=== PATIENT | female | born 1980 | race Caucasian/White ===

== ENCOUNTER 2018-01-08 02:44 | Observation (INO) | payer SELFPAY ==
[2018-01-08] VITALS (9 sets, daily range): BP systolic 106–138; BP diastolic 52–80; PULSE 57–77; RESP 16–20; TEMP 96.7–98.4; O2SAT 95–100
[~2018-01-08] VITALS: Ht 177.8 cm; Wt 116.6 kg
--- NOTE | 2018-01-08 03:00 | PD ---
HPI Chief Complaint: Numbness/Tingling Time Seen by Provider: 02:55 Travel History International Travel<30 days: No Contact w/Intl Traveler<30days: No Traveled to known affect area: No History of Present Illness HPI Per patient she stated that she has had for about the past 5 hours tingling and numbness to the right side of the face right entire upper extremity and right lower extremity. However now when she presented the patient states that she only has tingling to the right upper extremity on the right elbow down. Patient is able to speak clearly, able to give the entire history, has no gaps in memory, and is able to move all extremities including the affected extremity well and was able to ambulate back here on her own. Patient denies any headache /chest pain/back pain/abdominal pain/nausea/vomiting/diarrhea/visual changes/ Patient denies any allergies to medications Past medical history significant for PCO S, diabetes, patient had a left ovary and left fallopian tube removed because of a cyst that was thought to be malignant this was removed due to that reasoning. [facility] Social History Tobacco Use: No Allergies-Medications (Allergen,Severity, Reaction): Coded Allergies: Penicillins (Verified Allergy, Mild, Rash, 01/08/18) levofloxacin (Verified Allergy, Mild, Rash, 01/08/18) Reported Meds & Prescriptions Reported Meds & Active Scripts Active Reported Ventolin Hfa 18 GM Inh (Albuterol Sulfate) 90 Mcg/Act Aer 2 Puff INH Q4-6H PRN Simvastatin 5 Mg Tab 5 Mg PO DAILY Spironolactone 25 Mg Tab 12.5 Mg PO DAILY Tradjenta (Linagliptin) 5 Mg Tab 5 Mg PO DAILY Prozac (Fluoxetine HCl) 40 Mg Cap 40 Mg PO DAILY Metformin ER (Metformin HCl) 750 Mg Terese 750 Mg PO BID With evening meal Review of Systems General / Constitutional: No: Fever Eyes: No: Visual changes HENT: No: Headaches Cardiovascular: No: Chest Pain or Discomfort Respiratory: No: Shortness of Breath Gastrointestinal: No: Abdominal Pain Genitourinary: No: Dysuria Musculoskeletal: No: Pain Skin: No Rash Neurologic: Positive: Paresthesia Psychiatric: No: Depression Endocrine: No: Polydipsia Hematologic/Lymphatic: No: Easy Bruising Physical Exam Narrative GENERAL: SKIN: Warm and dry. HEAD: Atraumatic. Normocephalic. EYES: Pupils equal and round. No scleral icterus. No injection or drainage. ENT: No nasal bleeding or discharge. Mucous membranes pink and moist. NECK: Trachea midline. No JVD. CARDIOVASCULAR: Regular rate and rhythm. RESPIRATORY: No accessory muscle use. Clear to auscultation. Breath sounds equal bilaterally. GASTROINTESTINAL: Abdomen soft, non-tender, nondistended MUSCULOSKELETAL: Extremities without clubbing, cyanosis, or edema. No obvious deformities. NEUROLOGICAL: Awake and alert. No obvious cranial nerve deficits. Motor grossly within normal limits. Five out of 5 muscle strength in the arms and legs. Normal speech. PSYCHIATRIC: Appropriate mood and affect; insight and judgment normal. Data Data Last Documented VS Vital Signs Date Time Temp Pulse Resp B/P (MAP) Pulse Ox O2 Delivery O2 Flow Rate FiO2 01/08/18 03:59 60 16 117/78 (91) 97 Room Air 01/08/18 02:59 98.4 Orders Orders Electrocardiogram (01/08/18 03:00) Prothrombin Time / Inr (Pt) (01/08/18 03:00) Act Partial Throm Time (Ptt) (01/08/18 03:00) Complete Blood Count With Diff (01/08/18 03:00) Comprehensive Metabolic Panel (01/08/18 03:00) Drug Screen, Random Urine (01/08/18 03:00) Troponin I (01/08/18 03:00) Urinalysis - C+S If Indicated (01/08/18 03:00) Ct Brain W/O Iv Contrast(Rout) (01/08/18 03:00) Chest, Single Ap (01/08/18 03:00) Ecg Monitoring (01/08/18 03:00) Iv Access Insert/Monitor (01/08/18 03:00) Oximetry (01/08/18 03:00) Blood Glucose (01/08/18 03:00) Ed Urine Pregnancytest Poc (01/08/18 03:07) Admit Order (Ed Use Only) (01/08/18 04:46) Labs Laboratory Tests Test 01/08/18 02:55 01/08/18 04:03 White Blood Count 7.2 TH/MM3 Red Blood Count 4.37 MIL/MM3 Hemoglobin 13.2 GM/DL Hematocrit 39.1 % Mean Corpuscular Volume 89.6 FL Mean Corpuscular Hemoglobin 30.2 PG Mean Corpuscular Hemoglobin Concent 33.7 % Red Cell Distribution Width 13.1 % Platelet Count 200 TH/MM3 Mean Platelet Volume 9.9 FL Neutrophils (%) (Auto) 61.0 % Lymphocytes (%) (Auto) 30.6 % Monocytes (%) (Auto) 5.8 % Eosinophils (%) (Auto) 1.9 % Basophils (%) (Auto) 0.7 % Neutrophils # (Auto) 4.4 TH/MM3 Lymphocytes # (Auto) 2.2 TH/MM3 Monocytes # (Auto) 0.4 TH/MM3 Eosinophils # (Auto) 0.1 TH/MM3 Basophils # (Auto) 0.1 TH/MM3 CBC Comment DIFF FINAL Differential Comment Prothrombin Time 10.7 SEC Prothromb Time International Ratio 1.1 RATIO Activated Partial Thromboplast Time 28.4 SEC Blood Urea Nitrogen 9 MG/DL Creatinine 0.74 MG/DL Random Glucose 185 MG/DL Total Protein 8.5 GM/DL Albumin 3.3 GM/DL Calcium Level 8.7 MG/DL Alkaline Phosphatase 111 U/L Aspartate Amino Transf (AST/SGOT) 72 U/L Alanine Aminotransferase (ALT/SGPT) 102 U/L Total Bilirubin 0.3 MG/DL Sodium Level 137 MEQ/L Potassium Level 3.6 MEQ/L Chloride Level 102 MEQ/L Carbon Dioxide Level 29.7 MEQ/L Anion Gap 5 MEQ/L Estimat Glomerular Filtration Rate 89 ML/MIN Troponin I LESS THAN 0.02 NG/ML Urine Collection Type CLEAN CATCH Urine Color YELLOW Urine Turbidity CLEAR Urine pH 5.5 Urine Specific [place] 1.025 Urine Protein NEG mg/dL Urine Glucose (UA) 250 mg/dL Urine Ketones NEG mg/dL Urine Occult Blood NEG Urine Nitrite NEG Urine Bilirubin NEG Urine Urobilinogen 2.0 MG/DL Urine Leukocyte Esterase NEG Urine WBC 0-2 /hpf Urine Squamous Epithelial Cells 0-5 /hpf Urine Mucus MOD /lpf Microscopic Urinalysis Comment CULT NOT INDICATED Urine Opiates Screen NEG Urine Barbiturates Screen NEG Urine Amphetamines Screen NEG Urine Benzodiazepines Screen NEG Urine Cocaine Screen NEG Urine Cannabinoids Screen NEG MDM Medical Decision Making Medical Screen Exam Complete: Yes Emergency Medical Condition: Yes Medical Record Reviewed: Yes Interpretation(s) EKG shows some slight motion artifact however sinus bradycardia 56 bpm GÉNESIS pattern but without any STEMI pattern. Differential Diagnosis TIA versus CVA versus intracranial hemorrhage versus hypoglycemia versus anemia versus electrolyte abnormality Narrative Course CBC shows no leukocytosis no anemia and normal platelet count and no left shift Coagulation profile is within normal limits Urinalysis does not show any evidence of UTI Toxicology is negative for any evidence of opiate barbiturates and amphetamines benzodiazepines cocaine or marijuana Chemistry profile is within normal limits for electrolytes, and kidney functions. The random glucose is 185, troponin is negative, however mild elevations of AST at 72 ALT at 102 but with normal total bilirubin and normal alk phos Chest x-ray was read by the radiologist as normal examination CT head was read by the radiologist as normal examination Patient was recommended to stay to have further evaluation for a possible TIA versus pituitary adenoma versus intracerebral aneurysm Diagnosis Primary Impression: TIA Admitting Information Admitting Physician Requests: Observation Pavel Braswell MD Jan 08, 2018 03:00
[2018-01-08 03:18] LABS: AUTOMATED NEUTROPHIL # 4.4 TH/MM3 (1.8-7.7); BASOPHIL # 0.1 TH/MM3 (0-0.2); BASOPHIL % 0.7 % (0.0-2.0); EOSINOPHIL # 0.1 TH/MM3 (0-0.4); EOSINOPHIL % 1.9 % (0.0-4.0); HEMATOCRIT 39.1 % (35.0-46.0); HEMOGLOBIN 13.2 GM/DL (11.6-15.3); LYMPH % 30.6 % (9.0-44.0); LYMPHOCYTE # 2.2 TH/MM3 (1.0-4.8); MEAN CELL VOLUME 89.6 FL (80.0-100.0); MEAN CORPUSCULAR HEMOGLOBIN 30.2 PG (27.0-34.0); MEAN CORPUSCULAR HGB CONC 33.7 % (32.0-36.0); MEAN PLATELET VOLUME 9.9 FL (7.0-11.0); MONO % 5.8 % (0.0-8.0); MONOCYTE # 0.4 TH/MM3 (0-0.9); PLATELET COUNT 200 TH/MM3 (150-450); RED BLOOD COUNT 4.37 MIL/MM3 (4.00-5.30); RED CELL DISTRIBUTION WIDTH 13.1 % (11.6-17.2); WHITE BLOOD COUNT 7.2 TH/MM3 (4.0-11.0)
[2018-01-08 03:26] LABS: CHLORIDE 102 MEQ/L (98-107); SODIUM (NA) 137 MEQ/L (136-145)
[2018-01-08 03:29] LABS: CALCIUM 8.7 MG/DL (8.5-10.1)
[2018-01-08 03:30] LABS: ALBUMIN 3.3 GM/DL (3.4-5.0); BICARBONATE 29.7 MEQ/L (21.0-32.0); BLOOD UREA NITROGEN 9 MG/DL (7-18); GLUCOSE,RANDOM 185 MG/DL (74-106)
[2018-01-08 03:32] LABS: INTERNATIONAL NORMALIZED RATIO 1.1 RATIO; PROTHROMBIN TIME - PATIENT 10.7 SEC (9.8-11.6)
[2018-01-08 03:33] LABS: ALT (GPT) 102 U/L (10-53); AST (GOT) 72 U/L (15-37); CREATININE 0.74 MG/DL (0.50-1.00); GLOMERULAR FILTRATION RATE 89 ML/MIN (>89)
[2018-01-08 03:35] LABS: TOTAL BILIRUBIN ADULT 0.3 MG/DL (0.2-1.0); TOTAL PROTEIN 8.5 GM/DL (6.4-8.2)
[2018-01-08 03:36] LABS: ALKALINE PHOSPHATASE 111 U/L (45-117)
[2018-01-08 03:38] LABS: TROPONIN I LESS THAN 0.02 NG/ML (0.02-0.05)
[2018-01-08] MEDS ORDERED: SPIR25TA PO (03:42)
[2018-01-08] MEDS ORDERED: SIMV5TAB3 PO (03:42)
[2018-01-08] MEDS ORDERED: METF750T PO (03:42)
[2018-01-08] MEDS ORDERED: PROZ40CA PO (03:42)
[2018-01-08] MEDS ORDERED: TRAD5TAB PO (03:42)
[2018-01-08] MEDS ORDERED: VENTAER INH (03:42)
--- NOTE | 2018-01-08 03:57 | RADRPT ---
EXAM DATE/TIME: 01/08/2018 03:22 [facility] COMPARISON: No previous studies available for comparison. INDICATIONS : Weakness, right sided numbness starting today MEDICAL HISTORY : None. SURGICAL HISTORY : None. ENCOUNTER: Initial ACUITY: 1 day PAIN SCORE: 0/10 LOCATION: Bilateral chest FINDINGS: A single view of the chest demonstrates the lungs to be symmetrically aerated without evidence of mas s, infiltrate or effusion. The cardiomediastinal contours are unremarkable. Osseous structures are intact. CONCLUSION: Normal examination. Abner Bates Jr., MD on January 08, 2018 at 3:56 Board Certified Radiologist. This report was verified electronically.
[2018-01-08 04:21] LABS: BILIRUBIN, URINE NEG (NEG); BLOOD, URINE NEG (NEG); GLUCOSE,URINE 250 mg/dL (NEG); KETONE, URINE NEG (NEG); NITRITE,URINE NEG (NEG); PH, URINE 5.5 (5.0-8.5); URINE COLOR YELLOW (YELLW/STRAW); URINE LEUKOCYTE ESTERASE NEG (NEG)
[2018-01-08 04:27] LABS: MUCUS URINE MOD /lpf (OCC); SQUAMOUS EPITHELIAL CELL URINE 0-5 /hpf (0-5); WBC, URINE 0-2 /hpf (0-5)
[2018-01-08] MEDS ORDERED: SODIUM CHLORIDE 0.9% FLUSH 10 ML FLUSH IV FLUSH PRN (04:45)
[2018-01-08] MEDS ORDERED: GLUCAGON 1 MG/ML VIAL OTHER PRN (04:45)
[2018-01-08] MEDS ORDERED: DEXTROSE 50% IN WATER 50 ML VIAL(D50) IV PUSH PRN (04:45)
--- NOTE | 2018-01-08 04:45 | RADRPT ---
EXAM DATE/TIME: 01/08/2018 04:27 [facility] COMPARISON: No previous studies available for comparison. INDICATIONS : Right arm numbness and bilateral leg numbness. RADIATION DOSE: 64.55 CTDIvol (mGy) MEDICAL HISTORY : Diabetes mellitus type 2. SURGICAL HISTORY : None. ENCOUNTER: Initial ACUITY: 1 day PAIN SCALE: 0/10 LOCATION: cranial TECHNIQUE: Multiple contiguous axial images were obtained of the head. Using automated exposure control and adj ustment of the mA and/or kV according to patient size, radiation dose was kept as low as reasonably a chievable to obtain optimal diagnostic quality images. DICOM format image data is available electro nically for review and comparison. FINDINGS: CEREBRUM: The ventricles are normal for age. No evidence of midline shift, mass lesion, hemorrhage or acute in farction. No extra-axial fluid collections are seen. POSTERIOR FOSSA: The cerebellum and brainstem are intact. The 4th ventricle is midline. The cerebellopontine angle i s unremarkable. EXTRACRANIAL: The visualized portion of the orbits is intact. SKULL: The calvaria is intact. No evidence of skull fracture. CONCLUSION: Normal examination. Abner Bates Jr., MD on January 08, 2018 at 4:43 Board Certified Radiologist. This report was verified electronically.
[2018-01-08] MEDS ORDERED: PRAVASTATIN SOD 10 MG TAB PO SCH (09:00)
[2018-01-08] MEDS ORDERED: FLUoxetine HCL 20 MG CAP PO SCH (09:00)
[2018-01-08] MEDS ORDERED: SODIUM CHLORIDE 0.9% FLUSH 10 ML FLUSH IV FLUSH SCH (09:00)
[2018-01-08] MEDS ORDERED: ASPIRIN EC 81 MG TABEC PO SCH (09:00)
[2018-01-08] MEDS ORDERED: RESP: ALBUTEROL 2.5 MG/IPRATROPIUM 0.5 MG NEB (PRN) NEB (09:00)
--- NOTE | 2018-01-08 09:26 | HHI.HP ---
[facility] Service [place] [facility] Primary Care Physician No Primary Care Physician Admission Diagnosis TIA Diagnoses: (1) Paresthesia Diagnosis: Principal (2) Numbness and tingling of right arm and leg Diagnosis: Principal (3) Numbness and tingling of right side of face Diagnosis: Principal Chief Complaint: Numbness and tingling of right sided face, arm, leg Travel History International Travel<30 Days: No Contact w/Intl Traveler <30 Da: No Traveled to Known Affected Are: No History of Present Illness 37-year-old female with known history of PCOS, diabetes, hyperlipidemia, Abraham who presented to hospital because of right facial, arm, leg numbness and paresthesia. Patient states that she is in normal state of health until 6 PM last night when she was laying in bed she started developing her normal abdominal cramping that when she turned in bed she states that she lost feeling of both her legs. She got out of bed and went did some work at her desk. While she was working in hershe started developing a right hand numbness and paresthesia was continued to spread up her arm, into her shoulder, side of her face, right lower extremity. She notified her of her symptoms and he requested that they go to the hospital to get evaluated. Patient states that on her way into the hospital she was looking to the right and thought she saw some visual disturbance in the very periphery of her right vision. When she got to the emergency department she states that her symptoms did improve. They completely resolved. She had CT scan which was unremarkable. She was recommended observation in the hospital. She was doing well throughout the night and then this morning she started developing paresthesia again in the right hand. Patient does have PCOS and she has stopped taking her control pills and has not had her period this month. Prior to test was done emergency department which was negative. Patient denies any dysphagia, disequilibrium, dizziness, ataxia Review of Systems Neurologic: COMPLAINS OF: Paresthesias Except as stated in HPI: all other systems reviewed are Neg Past Family Social History Past Medical History Hyperlipidemia Diabetes PCOS ABRAHAM Anxiety/depression Past Surgical History Cholecystectomy Left peripheral salpingectomy Renal vascular surgery Reported Medications Reported Meds & Active Scripts Active Reported Ventolin Hfa 18 GM Inh (Albuterol Sulfate) 90 Mcg/Act Aer 2 Puff INH Q4-6H PRN Simvastatin 5 Mg Tab 5 Mg PO DAILY Spironolactone 25 Mg Tab 12.5 Mg PO DAILY Tradjenta (Linagliptin) 5 Mg Tab 5 Mg PO DAILY Prozac (Fluoxetine HCl) 40 Mg Cap 40 Mg PO DAILY Metformin ER (Metformin HCl) 750 Mg Terese 750 Mg PO BID With evening meal Allergies: Coded Allergies: Penicillins (Verified Allergy, Mild, Rash, 01/08/18) levofloxacin (Verified Allergy, Mild, Rash, 01/08/18) Family History Patient states that her mother is alive with pulmonary fibrosis, father alive with degenerative spine disease. No indication of any heart disease, lung disease, diabetes, cancer, seizure, stroke Social History Patient denies any tobacco, alcohol or illicit drugs Physical Exam Vital Signs Vital Signs Date Time Temp Pulse Resp B/P (MAP) Pulse Ox O2 Delivery O2 Flow Rate FiO2 01/08/18 06:05 68 16 113/73 (86) 98 01/08/18 06:00 97.6 63 18 124/80 (95) 97 01/08/18 05:00 68 16 129/78 (95) 98 Room Air 01/08/18 03:59 60 16 117/78 (91) 97 Room Air 01/08/18 03:03 77 18 99 Room Air 01/08/18 03:00 100 Room Air 01/08/18 02:59 98.4 77 18 138/78 (98) 99 Physical Exam GENERAL: Well-developed, obese with BMI 36.9, in no acute distress. alert and orientated HEENT: Head is normocephalic without any lesions or masses noted. Facial features are symmetric. Patient does have signs of hirsutism, with facial hair. Dark arm hair. Eyes: Pupils equal round reactive to light. Extraocular muscles are intact. Conjunctivae were clear. Oropharyngeal: Pharynx without any erythema edema. Tongue is midline without deviation. Buccal mucosa is moist without any masses or lesions NECK: Supple without any masses. Trachea midline no deviation. No JVD, no bruits are appreciated CARDIAC: Regular rhythm, regular rate. S1/S2 are heard. No murmurs gallops or rubs. LUNGS: Clear to auscultation bilaterally. No wheeze, rhonchi or rales. No use of accessory muscles on inspiration or expiration. ABDOMEN: Soft, nontender. Nondistended. Bowel sounds heard in all 4 quadrants. No organomegaly or masses. Negative rebound, negative guarding. Mild musculoskeletal tenderness noted over the lower left rib cage EXTREMITIES: No edema, pulses are equal bilaterally. No cyanosis or clubbing NEUROLOGY: Mood and affect appear appropriate. Cranial nerves II through XII grossly intact. Muscle strength 5/5 in upper and lower extremities bilaterally. Deep tendon reflexes are 2+ in upper and lower extremities bilaterally. Laboratory Laboratory Tests Test 01/08/18 02:55 01/08/18 04:03 White Blood Count 7.2 Red Blood Count 4.37 Hemoglobin 13.2 Hematocrit 39.1 Mean Corpuscular Volume 89.6 Mean Corpuscular Hemoglobin 30.2 Mean Corpuscular Hemoglobin Concent 33.7 Red Cell Distribution Width 13.1 Platelet Count 200 Mean Platelet Volume 9.9 Neutrophils (%) (Auto) 61.0 Lymphocytes (%) (Auto) 30.6 Monocytes (%) (Auto) 5.8 Eosinophils (%) (Auto) 1.9 Basophils (%) (Auto) 0.7 Neutrophils # (Auto) 4.4 Lymphocytes # (Auto) 2.2 Monocytes # (Auto) 0.4 Eosinophils # (Auto) 0.1 Basophils # (Auto) 0.1 CBC Comment DIFF FINAL Differential Comment Prothrombin Time 10.7 Prothromb Time International Ratio 1.1 Activated Partial Thromboplast Time 28.4 Blood Urea Nitrogen 9 Creatinine 0.74 Random Glucose 185 Total Protein 8.5 Albumin 3.3 Calcium Level 8.7 Alkaline Phosphatase 111 Aspartate Amino Transf (AST/SGOT) 72 Alanine Aminotransferase (ALT/SGPT) 102 Total Bilirubin 0.3 Sodium Level 137 Potassium Level 3.6 Chloride Level 102 Carbon Dioxide Level 29.7 Anion Gap 5 Estimat Glomerular Filtration Rate 89 Troponin I LESS THAN 0.02 Thyroid Stimulating Hormone 3rd Gen 3.000 Urine Collection Type CLEAN CATCH Urine Color YELLOW Urine Turbidity CLEAR Urine pH 5.5 Urine Specific [place] 1.025 Urine Protein NEG Urine Glucose (UA) 250 Urine Ketones NEG Urine Occult Blood NEG Urine Nitrite NEG Urine Bilirubin NEG Urine Urobilinogen 2.0 Urine Leukocyte Esterase NEG Urine WBC 0-2 Urine Squamous Epithelial Cells 0-5 Urine Mucus MOD Microscopic Urinalysis Comment CULT NOT INDICATED Urine Opiates Screen NEG Urine Barbiturates Screen NEG Urine Amphetamines Screen NEG Urine Benzodiazepines Screen NEG Urine Cocaine Screen NEG Urine Cannabinoids Screen NEG Result Diagram: 01/08/1825401/08/18254 Imaging Last Impressions Head CT 01/08/18299 Signed Impressions: Service Date/Time: December 04:27 - CONCLUSION: Normal examination. Abner Bates Jr., MD Chest X-Ray 01/08/18299 Signed Impressions: Service Date/Time: December 03:22 - CONCLUSION: Normal examination. MD Joanna Manriquez Jr. VTE Risk Assessment Caprincarline VTE Risk Assessment: No/Low Risk (score <= 1) Caprini Risk Assessment Model Point Value = 1 Point Value = 2 Point Value = 3 Point Value = 5 Age 41-60 Minor surgery BMI > 25 kg/m2 Swollen legs Varicose veins or History of unexplained or recurrent spontaneous Oral contraceptives or hormone replacement Sepsis (< 1 month) Serious lung disease, including pneumonia (< 1 month) Abnormal pulmonary function Acute myocardial infarction Congestive heart failure (< 1 month) History of inflammatory bowel disease Medical patient at bed rest Age 61-74 Arthroscopic surgery Major open surgery (> 45 min) Laparoscopic surgery (> 45 min) Malignancy Confined to bed (> 72 hours) Immobilizing plaster cast Central venous access Age >= 75 History of VTE Family history of VTE Factor V Leiden Prothrombin [id number] Lupus anticoagulant Anticardiolipin antibodies Elevated serum homocysteine Heparin-induced thrombocytopenia Other congenital or acquired thrombophilia Stroke (< 1 month) Elective arthroplasty Hip, pelvis, or leg fracture Acute spinal cord injury (< 1 month) Prophylaxis Regimen Total Risk Factor Score Risk Level Prophylaxis Regimen 0-1 Low Early ambulation 2 Moderate Order ONE of the following: *Sequential Compression Device (SCD) *Heparin 5000 units SQ BID 3-4 Higher Order ONE of the following medications: *Heparin 5000 units SQ TID *Enoxaparin/Lovenox 40 mg SQ daily (WT < 150 kg, CrCl > 30 mL/min) *Enoxaparin/Lovenox 30 mg SQ daily (WT < 150 kg, CrCl > 10-29 mL/min) *Enoxaparin/Lovenox 30 mg SQ BID (WT < 150 kg, CrCl > 30 mL/min) AND/OR *Sequential Compression Device (SCD) 5 or more Highest Order ONE of the following medications: *Heparin 5000 units SQ TID (Preferred with Epidurals) *Enoxaparin/Lovenox 40 mg SQ daily (WT < 150 kg, CrCl > 30 mL/min) *Enoxaparin/Lovenox 30 mg SQ daily (WT < 150 kg, CrCl > 10-29 mL/min) *Enoxaparin/Lovenox 30 mg SQ BID (WT < 150 kg, CrCl > 30 mL/min) AND *Sequential Compression Device (SCD) Assessment and Plan Assessment and Plan 37-year-old female who presented to the hospital because of right sided paresthesia and numbness Neurological deficit of the right side of the body CT scan of the brain did not indicate any acute abnormality MRI of the brain did not indicate any acute abnormality MRA of the brain showed possible area is in the right A1, left M1 and may represent aneurysms recommended CTA of the head CTA of the head was performed which did not correspond with abnormal findings. No aneurysms were noted Carotid ultrasound was performed and did not indicate any abnormality CTA of the carotids did not indicate any hemodynamically significant stenosis Further laboratory findings to B12, folate, TSH were normal. Sedimentation rate with mild elevation Echocardiogram indicates normal systolic function ejection fraction 60-65%. Neurology consultation was performed to indicated that if CTAs, MRAs are negative possible cervical radiculopathy. Can be discharged on aspirin with outpatient follow-up. PT/OT/ST evaluations Patient started on aspirin 162 mg daily Diabetes Accu-Cheks with sliding scale insulin Awaiting hemoglobin A1c Hyperlipidemia LDL 129, Statin has been continued DVT prevention Sequential compression devices Discharge disposition Discharge home in stable condition Activity: Ad pasha. Diet: Diabetic diet Medications per medication reconciliation Follow-up primary medical doctor one week, neurologist in 2 weeks Sheldon Meyers Jan 08, 2018 09:26
--- NOTE | 2018-01-08 10:27 | RADRPT ---
EXAM DATE/TIME: 01/08/2018 10:11 [facility] COMPARISON: No previous studies available for comparison. INDICATIONS : TIA. Right sided numbness and pain. MEDICAL HISTORY : Renal calculi. Diabetes mellitus type 2. SHEIKH, PCOS SURGICAL HISTORY : Cholecystectomy. Left ovary sx., Renal vascular surgery ENCOUNTER: Initial ACUITY: 1 day PAIN SCORE: 4/10 LOCATION: Right cranial TECHNIQUE: Multiplanar, multisequence MRI of the brain was performed without contrast. FINDINGS: CEREBRUM: The ventricles are normal for age. No evidence of midline shift, mass lesion, hemorrhage or acute in farction. No extraaxial fluid collections are seen. The pituitary gland and suprasellar cistern are normal in configuration. WHITE MATTER: No significant signal abnormalities are seen in the white matter. POSTERIOR FOSSA: The cerebellum and brainstem are intact. The 4th ventricle is midline. The cerebellopontine angle is unremarkable. The cerebellar tonsils are normal in position. DIFFUSION IMAGING: The diffusion restricted images demonstrate a small area of signal which appears to be within the pos terior horn of the left lateral ventricle. I believe this is signal within a cyst in the choroid plex us rather than within the brain parenchyma. I do not see definite evidence of a cortical based infarc t. EXTRACRANIAL: The visualized portions of the orbits and paranasal sinuses are unremarkable. CONCLUSION: 1. No definite findings to indicate acute cortical infarction identified. Examination is within randal l limits. Brady Goodrich MD on January 08, 2018 at 10:20 Board Certified Radiologist. This report was verified electronically.
[2018-01-08 11:13] LABS: FOLATE 12.2 NG/ML (3.1-17.5)
--- NOTE | 2018-01-08 11:22 | RADRPT ---
EXAM DATE/TIME: 01/08/2018 10:48 [facility] COMPARISON: No previous studies available for comparison. INDICATIONS : Transischemic attack. Right side numbness and tingling. MEDICAL HISTORY : Kidney stones. Diabetic. SURGICAL HISTORY : Left oopherectomy and salpingectomy. ENCOUNTER: Initial ACUITY: 1 day PAIN SCORE: 4/10 LOCATION: Bilateral neck PEAK SYSTOLIC VELOCITIES (cm/sec): ICA/CCA RATIO: Right: 0.6 Left: 0.7 ICA: Right: 84 Left: 100 CCA: Right: 145 Left: 135 ECA: Right: 133 Left: 100 VERTEBRAL: Right: 64 antegrade Left: 74 antegrade Elevated flow velocities and ICA/CCA ratios have been found to correlate with increased degrees of vessel stenosis, calculated as percentage of diameter relative to a normal segment of distal ICA/CCA FINDINGS: RIGHT CAROTID: No significant stenosis is visualized. The waveforms are within normal limits. LEFT CAROTID: No significant stenosis is visualized. The waveforms are within normal limits. VERTEBRAL ARTERIES: Antegrade flow is seen in both vertebral arteries. MISCELLANEOUS: None. CONCLUSION: Normal examination for a patient of this age. Antonio Kessler MD on January 08, 2018 at 11:19 Board Certified Radiologist. This report was verified electronically.
--- NOTE | 2018-01-08 11:31 | RADRPT ---
EXAM DATE/TIME: 01/08/2018 10:11 [facility] COMPARISON: MRI BRAIN W/O CONTRAST, January 08, 2018, 10:11. INDICATIONS : TIA. Right sided numbness and pain. MEDICAL HISTORY : Diabetes mellitus type 2. Renal calculi. PCOS, SHEIKH, SURGICAL HISTORY : Cholecystectomy. Left ovary sx., Renal vascular surgery ENCOUNTER: Initial ACUITY: 1 day PAIN SCORE: 4/10 LOCATION: Right cranial Please note a normal MRA of the brain does not entirely exclude the possibility of a small aneurysm, nor the possibility of distal intracranial vessel disease. TECHNIQUE: 3D time of flight MRA was performed. Source images, multiplanar STS MIP, and 3D volume MIP reconstru ctions were reviewed. FINDINGS: Anterior circulation: Distal intracranial internal carotid arteries are patent with flow extending to the middle and anteri or cerebral arteries. 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 There is also a probable 2 mm saccular aneurysm at the M1 bifurcation. There is no evidence for aneurysm, vessel truncation or stenosis, an d no evidence for vascular malformation. Posterior circulation: Symmetric distal vertebral arteries with flow extending to basilar artery. 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 There is no evidence for aneurysm, vessel truncatio n or stenosis, and no evidence for vascular malformation. CONCLUSION: 1. 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 Recommend CTA examination for confirmation and better evaluation. Dhaval Schmid MD on January 08, 2018 at 11:20 Board Certified Radiologist. This report was verified electronically.
[2018-01-08] MEDS ORDERED: INSULIN ASPART SUPPLEMENTAL SCALE SQ SCH (12:00)
[2018-01-08] MEDS ORDERED: IOHEXOL 350 MG/ML 10 ML VIAL (for RAD DIAG) IVCONTRAST ONE (13:36)
--- NOTE | 2018-01-08 13:57 | EKG ---
Date Performed: 01/08/2018 Time Performed: 03:21:51 PTAGE: 37 years EKG: SINUS BRADYCARDIA BORDERLINE ECG NO PREVIOUS TRACING DOCTOR: Munira Zamorano Interpretating Date/Time 01/08/2018 13:52:37
--- NOTE | 2018-01-08 14:41 | RADRPT ---
EXAM DATE/TIME: 01/08/2018 13:12 [facility] COMPARISON: MRA BRAIN W/O CONTRAST, January 08, 2018, 10:11. INDICATIONS : Resolved right arm and numbness. Abnormal MRI. Evaluate for aneurysm. IV CONTRAST: 95 cc Omnipaque 350 (iohexol) IV ; Cumulative dose for multiple exams. RADIATION DOSE: 42.22 CTDIvol (mGy) ; Combined studies MEDICAL HISTORY : Diabetes mellitus type 2. Asthma. SURGICAL HISTORY : Cholecystectomy. Left ovary removed. ENCOUNTER: Initial ACUITY: 1 day PAIN SCALE: 2/10 LOCATION: cranial TECHNIQUE: Volumetric scanning was performed using a multi-row detector CT scanner. The data was post processed with a variety of visualization algorithms including full volume maximum intensity projection, multi -planar sliding thin slab reformation, curved planar reformation, and surface rendering techniques. Using automated exposure control and adjustment of the mA and/or kV according to patient size, radiat ion dose was kept as low as reasonably achievable to obtain optimal diagnostic quality images. DICO M format image data is available electronically for review and comparison. FINDINGS: Anterior circulation: Distal intracranial internal carotid arteries are patent with flow extending to the middle and anteri or cerebral arteries. Abnormality noted on MRA examination corresponds to the origin of a medial orbi tofrontal artery otherwise not well demonstrated on MRA exam. Similarly, abnormality noted on MRA exa mination in the distal left M1 segment corresponds to a small temporal branch There is no evidence fo r aneurysm, vessel truncation or stenosis, and no evidence for vascular malformation. Posterior circulation: Symmetric distal vertebral arteries with flow extending to basilar artery. Posterior communicating a rteries are patent bilaterally with origin of the left MACHINE PACKER. There is no evidence for aneurysm, vessel truncation or stenosis, and no evidence for vascular malformation. CONCLUSION: 1. Abnormality on MRA examination in the distal right A1 segment corresponds to a proximal A2 branch, likely medial orbitofrontal artery that was not demonstrated on MRA exam. 2. Abnormality noted on MR a examination in the distal left M1 segment corresponds to a small tempora l branch that was not demonstrated on MRA exam. 3. No evidence for cerebral artery aneurysm. Dhaval Schmid MD on January 08, 2018 at 14:28 Board Certified Radiologist. This report was verified electronically.
--- NOTE | 2018-01-08 15:30 | MB ---
cc: Felicity Castellanos MD DATE OF CONSULT: HISTORY OF PRESENT ILLNESS: She is a 37-year-old woman seen in neurological consultation because of right-sided tingling that started last evening and lasted for several hours. She came to the emergency room in the middle of the night and her symptoms have resolved completely. She has a history of ovarian cancer. She has a history of diabetes mellitus and hyperlipidemia, obesity. She reportedly takes Tradjenta, Prozac, metformin, simvastatin, spironolactone, and Ventolin. No history of alcohol or drug NEUROLOGIC: Essentially unremarkable. Ocular movements and visual beck full. No facial weakness. Speech and language are normal. She has good strength throughout. [id number] testing normal. Reflexes 2+ throughout. Plantar responses flexor. She has been ambulatory in the hospital without problems. IMAGING STUDIES: Include normal MRI brain. Carotid ultrasound is unremarkable. CT angio of head is unremarkable. CTA neck pending. ASSESSMENT: Right upper extremity paresthesias that lasted a few hours. It could have been from a transient ischemic attack as well as cervical radiculopathy. If the CT angio neck confirms the unremarkable findings of the carotid ultrasound, then she could be discharged on a baby aspirin along with her usual statin. Outpatient followup and conceivably obtain MRI cervical spine in the future. Discussed these with the patient and her future [id number] who was at bedside. She might have significant sleep apnea and should be evaluated as outpatient for this. Otherwise, medical care. Lipid profile is pending. Thank you for asking us to assist in her care. I will follow her results. Patient's last CT angio neck shows significant disease. MD DIVYA Motta/LK , 03:08 PM , 03:29 PM
--- NOTE | 2018-01-08 15:32 | RADRPT ---
EXAM DATE/TIME: 01/08/2018 13:12 [facility] COMPARISON: CT BRAIN W/O CONTRAST, January 08, 2018, 4:27. INDICATIONS : Resolved right arm and numbness. Abnormal MRI. Evaluate for aneurysm. IV CONTRAST: 95 cc Omnipaque 350 (iohexol) IV RADIATION DOSE: 42.22 CTDIvol (mGy) MEDICAL HISTORY : Diabetes mellitus type 2. Asthma. SURGICAL HISTORY : Cholecystectomy. Left ovary removed. ENCOUNTER: Initial ACUITY: 1 day PAIN SCALE: 0/10 LOCATION: neck Elevated flow velocities and ICA/CCA ratios have been found to correlate with increased degrees of vessel stenosis, calculated as percentage of diameter relative to a normal segment of distal ICA/CCA. TECHNIQUE: Volumetric scanning was performed using a multirow detector CT scanner. The data was post processed with a variety of visualization algorithms including full-volume maximum intensity projection, multip lanar sliding thin-slab reformation, curved-planar reformation, and surface-rendering techniques. Us ing automated exposure control and adjustment of the mA and/or kV according to patient size, radiatio n dose was kept as low as reasonably achievable to obtain optimal diagnostic quality images. DICOM f ormat image data is available electronically for review and comparison. FINDINGS: AORTIC ARCH: There is a three-vessel origin of the great vessels from the aorta. No evidence of ostial narrowing. RIGHT CAROTID: The common carotid artery is intact. The carotid bulb has a normal configuration without ulceration o r narrowing. The internal carotid artery lumen is smooth without stenosis. The external carotid jose ry is intact. LEFT CAROTID: The common carotid artery is intact. The carotid bulb has a normal configuration without ulceration or narrowing. The internal carotid artery lumen is smooth without stenosis. The external carotid ar magnus is intact. VERTEBRALS: The left vertebral is somewhat smaller in caliber than the right.. No stenotic lesions are seen. CONCLUSION: 1. No hemodynamically significant carotid artery stenosis is identified. 2. The vertebral circulation is patent. Brady Goodrich MD on January 08, 2018 at 15:26 Board Certified Radiologist. This report was verified electronically.
[2018-01-08] MEDS ORDERED: ASPI81TA23 PO (16:18)
--- NOTE | 2018-01-08 16:19 | HHI.DCPOC ---
Discharge Care Plan Diagnosis: (1) Paresthesia (2) Numbness and tingling of right arm and leg (3) Numbness and tingling of right side of face Goals to Promote Your Health * To prevent worsening of your condition and complications * To maintain your health at the optimal level Directions to Meet Your Goals Take your medications as prescribed Follow your dietary instruction Follow activity as directed Keep your appointments as scheduled Take your immunizations and boosters as scheduled If your symptoms worsen call your PCP, if no PCP go to Urgent Care Center or Emergency Room Smoking is Dangerous to Your Health. Avoid second hand smoke Call the 24-hour hour crisis hotline for domestic abuse at [facility] Jan 08, 2018 16:18
[2018-01-08 16:29] LABS: HEMOGLOBIN A1C 7.6 % (4.3-6.0)
--- NOTE | 2018-01-08 17:18 | ECHRPT ---
Indication: CVA/TIA CONCLUSIONS Normal left ventricular size. Wall thickness is normal. The left ventricular systolic function is normal with an estimated ejection fraction in the range of 60-65%. BP: / HR: Rhythm: MEASUREMENTS (Male / Female) Normal Values Technical Quality: 2D ECHO LV Diastolic Diameter PLAX 5.0 cm 4.2 - 5.9 / 3.9 - 5.3 cm LV Systolic Diameter PLAX 3.5 cm IVS Diastolic Thickness 1.2 cm 0.6 - 1.0 / 0.6 - 0.9 cm LVPW Diastolic Thickness 1.0 cm 0.6 - 1.0 / 0.6 - 0.9 cm LV Relative Wall Thickness 0.4 LA Systolic Diameter LX 4.0 cm 3.0 - 4.0 / 2.7 - 3.8 cm DOPPLER Mitral E Point Velocity 89.3 cm/s Mitral A Point Velocity 65.2 cm/s Mitral E to A Ratio 1.4 TR Peak Velocity 232.0 cm/s TR Peak Gradient 21.5 mmHg Right Atrial Pressure 5.0 mmHg Pulmonary Artery Systolic Pressu 26.5 mmHg Right Ventricular Systolic Press 26.5 mmHg FINDINGS LEFT VENTRICLE Normal left ventricular size. Wall thickness is normal. The left ventricular systolic function is normal with an estimated ejection fraction in the range of 60-65%. RIGHT VENTRICLE Normal right ventricular size and systolic function. LEFT ATRIUM The left atrial size is normal. RIGHT ATRIUM The right atrial size is normal. ATRIAL SEPTUM Normal atrial septal thickness without atrial level shunting by limited color doppler interrogation. AORTA The aortic root and proximal ascending aorta are normal in size on limited imaging. MITRAL VALVE Structurally normal mitral valve. No mitral valve stenosis or regurgitation. AORTIC VALVE Trileaflet aortic valve. No aortic valve stenosis or regurgitation. TRICUSPID VALVE Structurally normal tricuspid valve. No tricuspid valve stenosis or regurgitation. PULMONARY VALVE No pulmonary valve regurgitation or stenosis. VESSELS The inferior vena cava is normal in size. PERICARDIUM No pericardial effusion. Chris Chery MD, FACC (Electronically Signed) Final Date:08 January 2018 17:17
[2018-01-08 17:47] LABS: CHOLESTEROL/ HDL RATIO 5.57 RATIO; HDL CHOLESTEROL 34.8 MG/DL (40.0-60.0)
== END 2018-01-08 17:01 | disposition home or self-care (01) ==
LOC: PHED 02:44 → PHEDA 04:47 → PH3A 06:00
PROVIDERS: ADMIT Hospitalist; ATTEND Hospitalist
DX: R20.0 Anesthesia of skin (principal); R20.2 Paresthesia of skin; E78.5 Hyperlipidemia, unspecified; R00.1 Bradycardia, unspecified; E11.9 Type 2 diabetes mellitus without complications; E28.2 Polycystic ovarian syndrome; H53.9 Unspecified visual disturbance; F41.8 Other specified anxiety disorders; E66.9 Obesity, unspecified; Z79.899 Other long term (current) drug therapy; Z79.84 Long term (current) use of oral hypoglycemic drugs; Z85.43 Personal history of malignant neoplasm of ovary
CPT/HCPCS: 70450; 70496; 70498; 70544; 70551; 71045; 80053; 80061; 80307; 81001; 82607; 82746; 82948; 83036; 84443; 84484; 84703; 85025; 85610; 85652; 85730; 92610; 93005; 93306; 93880; 97161; 97166; 99285; G0378; G8987; G8988; G8989; G8996; G8997; G8998; Q9967

== ENCOUNTER 2018-04-05 01:45 | Emergency (ER) | payer SELFPAY ==
[~2018-04-05] VITALS: Ht 175.3 cm; Wt 129.0 kg
[~2018-04-05 01:45] MED LIST: ASPI81TA23 PO; METF750T PO; PROZ40CA PO; SIMV5TAB3 PO; SPIR25TA PO; TRAD5TAB PO; VENTAER INH
[2018-04-05 01:50] VITALS: BP 129/72; PULSE 104; RESP 18; TEMP 102.4; O2SAT 96
[2018-04-05 02:31] VITALS: BP 116/75; PULSE 92; RESP 18; O2SAT 98
[2018-04-05] MEDS ORDERED: IBUPROFEN SUSP 100 MG/5 ML UDC PO ONE (03:00)
[2018-04-05] MEDS ORDERED: ZITHTAB2 PO (03:01)
--- NOTE | 2018-04-05 03:04 | PD ---
HPI Chief Complaint: ENT Complaint Time Seen by Provider: 02:48 Travel History International Travel<30 days: No Contact w/Intl Traveler<30days: No Traveled to known affect area: No History of Present Illness HPI 37-year-old female presents to the emergency department by private transportation the care of her spouse for evaluation of fever sore throat myalgias arthralgias and inability to breathe through her nose because of nasal congestion. Patient states she is noted symptoms since approximately 5 PM with worsening of her symptoms since 7 PM. Patient states she has taken no medications that she decided to try to go to sleep to see if her symptoms would resolve spontaneously. Upon awakening she noticed that her symptoms had worsened so decided to come to the emergency room. Patient is taken no acetaminophen or ibuprofen for symptoms although she states she tried to take a Tylenol but was not able to swallow the tablet. Patient has no hoarseness and has no stridor. Patient is in no respiratory distress. Patient states she has a history of asthma and asthmatic bronchitis and uses an inhaler on an occasional basis. Patient also has history of polycystic ovary syndrome diabetes chronic low back pain obesity previous cholecystectomy migraine kidney stones left oophorectomy salpingectomy and 3 para 0 AB 3. The patient rates her throat pain 9/10 in intensity. Attempting to swallow makes her symptoms worse patient is unable to identify any alleviating factors. PFSH Past Medical History Narrative Medical polycystic ovary syndrome diabetes chronic low back pain obesity previous cholecystectomy migraine kidney stones left oophorectomy salpingectomy and 3 para 0 AB 3; nursing notes reviewed Asthma: Yes Anxiety: Yes Depression: Yes Cancer: No Cardiovascular Problems: No Diabetes: Yes Patient Takes Glucophage: No Diminished Hearing: No Endocrine: Yes Gastrointestinal Disorders: Yes Genitourinary: Yes Immune Disorder: No Kidney Stones: Yes Medical other: Yes (PCOS) Musculoskeletal: Yes Neurologic: Yes Respiratory: Yes Immunizations Current: Yes Migraines: Yes Thyroid Disease: No Tetanus Vaccination: Unknown Influenza Vaccination: Yes ?: Not LMP: UNKNOWN DUE TO PCOS Past Surgical History Abdominal Surgery: No Cardiac Surgery: No Cholecystectomy: Yes Ear Surgery: No Endocrine Surgery: No Eye Surgery: No Genitourinary Surgery: No Gynecologic Surgery: Yes (left ovary and tube removed) Oral Surgery: No Thoracic Surgery: Yes (gallbladder removed) Other Surgery: Yes Social History Alcohol Use: No Tobacco Use: No Substance Use: No Allergies-Medications (Allergen,Severity, Reaction): Coded Allergies: Penicillins (Verified Allergy, Mild, Rash, 04/05/18) levofloxacin (Verified Allergy, Mild, Rash, 04/05/18) Reported Meds & Prescriptions Reported Meds & Active Scripts Active No Active Prescriptions or Reported Medications Review of Systems Except as stated in HPI: all other systems reviewed are Neg Physical Exam Narrative GENERAL: Well-developed well-nourished female no acute distress no respiratory distress SKIN: Warm and dry. HEAD: Normocephalic. EYES: No scleral icterus. No injection or drainage. ENT: Mucous membranes moist airways patent no pharyngeal edema erythema or exudative change patient is noted to have posterior pharyngeal drainage clear cloudy in color; tympanic membranes no redness no dullness no loss of no perforation NECK: Supple, trachea midline. No JVD or lymphadenopathy. No meningismus no nuchal rigidity. CARDIOVASCULAR: Regular rate and rhythm without murmurs, gallops, or rubs. RESPIRATORY: Breath sounds equal bilaterally. No accessory muscle use. GASTROINTESTINAL: Abdomen soft, non-tender, nondistended. MUSCULOSKELETAL: No cyanosis, or edema. BACK: Nontender without obvious deformity. No CVA tenderness. Data Data Last Documented VS Vital Signs Date Time Temp Pulse Resp B/P (MAP) Pulse Ox O2 Delivery O2 Flow Rate FiO2 04/05/18 02:31 92 18 116/75 (89) 98 Room Air 04/05/18 01:50 102.4 Orders Orders Influenzae A/B Antigen (04/05/18 02:15) Group A Rapid Strep Screen (04/05/18 02:15) Ibuprofen Liq (Motrin Liq) (04/05/18 03:00) Strep Culture (Group A) (04/05/18 02:25) MDM Medical Decision Making Medical Screen Exam Complete: Yes Emergency Medical Condition: Yes Medical Record Reviewed: Yes Interpretation(s) Rapid strep antigen: Negative Influenza A/B antigen: Negative Differential Diagnosis Upper respiratory infection, pharyngitis tonsillitis sinusitis bronchitis pneumonia viral syndrome; no exam findings for peritonsillar abscess unlikely retropharyngeal abscess Narrative Course Patient given weight-based ibuprofen due to her reports she cannot tolerate tablets at this time children's ibuprofen was administered; patient shows no evidence of stridor or hoarseness and is or able to handle her oral secretions and no drooling airway is patent on physical exam. Patient also given first dose of azithromycin Diagnosis Primary Impression: Acute sinusitis Qualified Codes: J01.00 - Acute maxillary sinusitis, unspecified Referrals: Primary Care Physician Patient Instructions: General Instructions Additional Instructions: Increase fluid hydration Take ibuprofen 800 mg as often as every 8 hours as for pain associated with inflammation or for fever 100.4F or greater Take acetaminophen 650 mg every 4-6 hours as needed for fever 100.4F Complete course of antibiotic as prescribed Rest Use Afrin nasal decongestant spray 1 spray to each nostril per package directions daily for the next 2-3 days to help with nasal congestion avoid overuse past 3 days Return to the emergency department for any concerns or change in condition Follow-up with your primary care provider call office on Friday to schedule follow-up appointment Med/Other Pt SpecificInfo: Prescription(s) given Scripts Azithromycin (Zithromax Tri-Vicente) 500 Mg Dspk 500 MG PO DAILY for Infection, #1 DSPK 0 Refills Prov: Jennifer Munoz MD 04/05/18 Disposition: 01 DISCHARGE HOME Condition: Stable Jennifer Munoz MD Apr 05, 2018 03:04
[2018-04-05] MEDS ORDERED: AZITHROMYCIN 250 MG TAB PO ONE (03:15)
[2018-04-05 03:18] VITALS: PULSE 92; RESP 18; O2SAT 98
== END 2018-04-05 03:22 | disposition home or self-care (01) ==
LOC: PHED 01:45
DX: J01.90 Acute sinusitis, unspecified (principal); M79.1 Myalgia; M25.50 Pain in unspecified joint; E11.9 Type 2 diabetes mellitus without complications; E66.9 Obesity, unspecified; J45.909 Unspecified asthma, uncomplicated; F41.9 Anxiety disorder, unspecified; F32.9 Major depressive disorder, single episode, unspecified; E28.2 Polycystic ovarian syndrome; Z88.0 Allergy status to penicillin; Z87.442 Personal history of urinary calculi; Z88.8 Allergy status to other drugs, medicaments and biological substances
CPT/HCPCS: 87081; 87804; 87880; 99283